=== PATIENT | female | born 1990 | race Hispanic/Latino ===

== ENCOUNTER 2021-05-04 10:15 | Emergency (ER) | payer SELFPAY ==
[2021-05-04 10:24] VITALS: BP 127/69; PULSE 78; RESP 16; TEMP 37.1; O2SAT 100
--- NOTE | 2021-05-04 10:48 | ED.EAR ---
HPI - Ear Problem General Chief complaint: Ear Stated complaint: Ear Pain History of Present Illness HPI Narrative: This is a 31-year-old comes in complaining ear pain states that has been going on for the past couple of days. Patient states that her face is been hurting. Patient states she is been taking Tylenol and ibuprofen with no relief. New onset sore throat no fever no for the past few days. nasal drainage Related Data Allergies Allergy/AdvReac Type Severity Reaction Status Date / Time No Known Allergies Allergy Unverified 01/09/14 10:41 Review of Systems Review of Systems: CONSTITUTIONAL: Denies fever, chills, or sweats. EYES: Denies visual changes, redness, or discharge. ENT: Denies rhinorrhea, congestion, reports sore throat, or reports otalgia. CARDIOVASCULAR:Denies chest pain, palpitations, or edema. RESPIRATORY: Denies cough or dyspnea. GASTROINTESTINAL: Denies abdominal pain, nausea, vomiting, or diarrhea. GENITOURINARY: Denies dysuria or hematuria. SKIN:[Denies rash or itching. MUSCULOSKELETAL:Denies back pain, joint pain, or myalgia. NEUROLOGIC: Denies headache, numbness, or weakness. PSYCHIATRIC:Denies anxiety or depression PMFSH Comments At time as signature, I have reviewed and agree with nursing past medical, social, surgical and family history. Please see nursing chart for further information. There is no relevant family history pertinent to the presenting complaint. Exam Narrative: GENERAL:Well-appearing, well-nourished, and in no acute distress. HEAD:Normocephalic, atraumatic. EYES: PERRLA and EOMI. ENT: Nares clear, no rhinorrhea Mucous membranes moist. Trigeminal pain and inability to to see in auditory canal NECK: Supple. CHEST: Clear to auscultation. No respiratory distress. HEART: Regular rate and rhythm. Normal peripheral pulses. ABDOMEN: Soft, nontender, normal active bowel sounds. EXTREMITIES: Normal range of motion. No edema. SKIN: Warm, dry, no rash. NEURO: No focal deficits. Alert and oriented x3. Course Vital Signs Vital signs: Vital Signs Temperature 98.7 F 05/04/21 10:24 Pulse Rate 78 05/04/21 10:24 Respiratory Rate 16 05/04/21 10:24 Blood Pressure 127/69 05/04/21 10:24 Pulse Oximetry 100 05/04/21 10:24 Temperature 98.7 F 05/04/21 10:24 Pulse Rate 78 05/04/21 10:24 Respiratory Rate 16 05/04/21 10:24 Blood Pressure 127/69 05/04/21 10:24 Pulse Oximetry 100 05/04/21 10:24 Medical Decision Making Vital Signs Vital Signs: Vital Signs Temperature 98.7 F 05/04/21 10:24 Pulse Rate 78 05/04/21 10:24 Respiratory Rate 16 05/04/21 10:24 Blood Pressure 127/69 05/04/21 10:24 Pulse Oximetry 100 05/04/21 10:24 Temperature 98.7 F 05/04/21 10:24 Pulse Rate 78 05/04/21 10:24 Respiratory Rate 16 05/04/21 10:24 Blood Pressure 127/69 05/04/21 10:24 Pulse Oximetry 100 05/04/21 10:24 Lab Data Labs: Strep Screen Presumptive Negative *(Reference Range: Negative)* Discharge Plan Discharge Clinical Impression: Acute sore throat Otitis externa Qualifiers: Otitis externa type: unspecified type Chronicity: acute Laterality: right Qualified Code(s): H60.501 - Unspecified acute noninfective otitis externa, right ear Patient Disposition: Home, Self-Care Condition: Stable Instructions: Antibiotic Form, Swimmer's Ear (ED), Allergic Rhinitis (ED) Additional Instructions: Ear instructions most people who have a cold do not need to see the doctor or nurse. But you should call your doctor or nurse if you have: ?A fever of more than 100.4? F (38? C) that comes with shaking chills, loss of appetite, or trouble breathing ?A fever and also have lung disease, such as emphysema or asthma ?A cough that lasts longer than 10 days ?Chest pain when you cough, trouble breathing, or coughing up blood Your strep test today was negative. A rejia
== END 2021-05-04 11:16 | disposition home or self-care (01) ==
PROVIDERS: Emergency Provider Nurse Practitioner Family
DX: J02.9 Acute pharyngitis, unspecified (principal); H60.501 Unspecified acute noninfective otitis externa, right ear
CPT/HCPCS: 87081; 87880; 99213; G0463

== ENCOUNTER 2022-03-08 17:33 | Outpatient (CLI) | payer OTHER, SELFPAY ==
[2022-03-08 17:56] VITALS: BP 126/69; PULSE 85
[2022-03-08 18:00] VITALS: BP 129/69; PULSE 86
[2022-03-08 18:15] VITALS: BP 119/66; PULSE 83
== END 2022-03-08 18:24 | disposition home or self-care (01) ==
LOC: ANHOBOP 17:39 → ANHOBPP 03-14 08:18
PROVIDERS: Visit Provider Obstetrics & Gynecology
DX: O42.913 Preterm premature rupture of membranes, unspecified as to length of time between rupture and onset of labor, third trimester (principal); Z3A.33 33 weeks gestation of pregnancy
CPT/HCPCS: 59025; 84112; 99199

== ENCOUNTER 2022-04-15 05:02 | Inpatient (IN) | payer OTHER, SELFPAY ==
[2022-04-15] VITALS (132 sets, daily range): BP systolic 104–153; BP diastolic 53–111; PULSE 64–141; RESP 18; TEMP 36.1–37.1; O2SAT 97–100; BMI 36.1
--- OUTSIDE RECORDS SUMMARY | 2022-04-15 05:08 | XMS_ITS | Encounter Summary ---
:1990 Author Reason for Visit None recorded. Assessment and Plan None recorded.Discussion Note: None recorded.Patient educational handouts: No information available. Plan of Care Reminders Provider Appointments None recorded. ? ? Lab None recorded. ? ? Referral None recorded. ? ? Procedures None recorded. ? ? Surgeries None recorded. ? ? Imaging None recorded. ? ? Medications Name Start Date ? ? ? Medications Administered None recorded. Vitals None recorded. Results Lab Results None recorded. Allergies Code Code System Name Reaction Severity Onset NKDA ? ? ? Problems Name Status Onset Date Source ? Active 10/13/2021 ? Prediabetes Active ? ? Procedures Date Name Performed by ? 03/08/2022 , Obstetric, Follow-up [place] [address] [place] [address] (Work [address]) 03/15/2022 , Obstetric, Limited [place] [address] [place] [address] (Work [address]) Vaccine List None recorded. Social History Tobacco Smoking Status Never Smoker What type of diet are you following? REGULAR Do you have difficulty walking or climbing stairs? N Are you able to walk? YESWOREST Has tobacco cessation counseling been provided? N Ar
--- OUTSIDE RECORDS SUMMARY | 2022-04-15 05:08 | XMS_ITS | Encounter Summary ---
:1990 Author Reason for Visit None recorded. Assessment and Plan 1. Routine care Discussion Note: None recorded.Patient educational handouts: No information available. Plan of Care Reminders Provider Appointments None recorded. ? ? Lab None recorded. ? ? Referral None recorded. ? ? Procedures None recorded. ? ? Surgeries None recorded. ? ? Imaging None recorded. ? ? Medications Name Start Date ? ? ? Medications Administered None recorded. Vitals Height Weight BMI Blood Pressure 5 ft 4 in 212 lbs 36.4 kg/m2 127/77 mm[Hg] Results Lab Results None recorded. Allergies Code Code System Name Reaction Severity Onset NKDA ? ? ? Problems Name Status Onset Date Source ? Active 10/13/2021 ? Prediabetes Active ? ? Procedures Date Name Performed by ? 03/08/2022 US, Obstetric, Follow-up [place] [address] [place] [address] (Work Place) 03/15/2022 , Obstetric, [facility] [address] [place] [address] (Work [address]) 03/29/2022 , Obstetric, [facility] [address] [place] [address]
--- OUTSIDE RECORDS SUMMARY | 2022-04-15 05:08 | XMS_ITS | Encounter Summary ---
:1990 Author Reason for Visit OB visit Assessment and Plan 1. Routine care Discussion [...] BMI Blood Pressure 5 ft 4 in 203 lbs 34.8 kg/m2 105/70 mm[Hg] Results Lab Results None recorded. Allergies Code Code System Name Reaction Severity Onset NKDA ? ? ? Problems Name Status Onset Date Source ? Active 10/13/2021 ? Prediabetes Active ? ? Procedures None recorded. Vaccine List None recorded. Social History Tobacco Smoking Status Never Smoker What type of diet are you following? REGULAR Do you have difficulty walking or climbing stairs? N Are you able to walk? YESWOREST Has tobacco cessation counseling been provided? N Are you able to care for yourself? Y Are you blind or do you have difficulty seeing? N Do you have smoke and carbon monoxide detectors in your home ? Y In the 14 days before symptom onset, have you had close cont act with N a person who is under investigation for COVID-19 while that person was ill?
--- OUTSIDE RECORDS SUMMARY | 2022-04-15 05:08 | XMS_ITS | Encounter Summary ---
:1990 Author Reason for Visit OB visit Assessment and Plan Assessment Note Patient is ___weeks . Discussed plan. 1. -induced hypertension Discussion Note: None recorded.Patient educational handouts: No [...] BMI Blood Pressure 5 ft 4 in 214 lbs 36.7 kg/m2 (1) 145/88 mm[H g] (2) 143/88 mm[Hg ] (3) 136/86 mm[Hg ] Results Lab Results None recorded. Allergies Code Code System Name Reaction Severity Onset NKDA ? ? ? Problems Name Status Onset Date Source ? Active 10/13/2021 ? Prediabetes Active ? ? Procedures Date Name Performed by ? 03/15/2022 , Obstetric, [facility] [address] [place] [address] (Work Place) 03/29/2022 , Obstetric, [facility] [address] [place] [address]
--- OUTSIDE RECORDS SUMMARY | 2022-04-15 05:08 | XMS_ITS | Encounter Summary ---
:1990 Author Reason for Visit None recorded. Assessment and Plan 1. -induced hypertension ? non-stress test Discussion Note: None recorded.Patient educational handouts: No information available. Plan of Care Reminders Provider Appointments None recorded. ? ? Lab None recorded. ? ? Referral None recorded. ? ? Procedures None recorded. ? ? Surgeries None recorded. ? ? Imaging Non-stress Test 04/13/2022 [place] Medications Name Start Date ? ? ? Medications Administered None recorded. Vitals None recorded. Results Lab Results None recorded. Allergies Code Code System Name Reaction Severity Onset NKDA ? ? ? Problems Name Status Onset Date Source ? Active 10/13/2021 ? Prediabetes Active ? ? Procedures Date Name Performed by ? 03/15/2022 , Obstetric, [facility] [address] [place] [address] (Work Place) 03/29/2022 , Obstetric, [facility] [address] [place] [address] (Work [address]) 04/13/2022 Non-stress Test [place] [address] [place] [address] (Work [address])
--- OUTSIDE RECORDS SUMMARY | 2022-04-15 05:08 | XMS_ITS | Encounter Summary ---
[...] BMI Blood Pressure 5 ft 4 in 208 lbs 35.7 kg/m2 116/72 mm[Hg] Results Lab Results None recorded. Allergies Code Code System Name Reaction Severity Onset NKDA ? ? ? Problems Name Status Onset Date Source ? Active 10/13/2021 ? Prediabetes Active ? ? Procedures Date Name Performed by ? 03/08/2022 US, Obstetric, Follow-up [place] [address] [place] [address] (Work Place) 03/15/2022 US, Obstetric, Limited [place] [address] [place] [address] (Work [address]) Vaccine List None recorded. Social History Tobacco Smoking Status Never Smoker What type of diet are you following? REGULAR Do you have difficulty walking or climbin
--- OUTSIDE RECORDS SUMMARY | 2022-04-15 05:08 | XMS_ITS | Encounter Summary ---
:1990 Author Reason for Visit None recorded. Assessment and Plan 1. Oligohydramnios ? US, obstetric, limited Discussion Note: None recorded.Patient educational handouts: No information available. Plan of Care Reminders Provider Appointments None recorded. ? ? Lab None recorded. ? ? Referral None recorded. ? ? Procedures None recorded. ? ? Surgeries None recorded. ? ? Imaging US, Obstetric, Limited 03/15/2022 Guevara esteves Medications Name Start Date ? ? ? Medications Administered None recorded. Vitals None recorded. Results Lab Results None recorded. Allergies Code Code System Name Reaction Severity Onset NKDA ? ? ? Problems Name Status Onset Date Source ? Active 10/13/2021 ? Prediabetes Active ? ? Procedures Date Name Performed by ? 03/08/2022 US, Obstetric, Follow-up [place] [address] [place] [address] (Work [address]) 03/15/2022 US, Obstetric, Limited [place] [address] [place] [address] (Work [address]) Vaccine List None recorded. Social History Tobacco Smoking Status Never Smoker What type of diet are you following? REGULAR Do you have difficulty walking or climbing stairs? N Are you able to
--- OUTSIDE RECORDS SUMMARY | 2022-04-15 05:08 | XMS_ITS | Encounter Summary ---
[...] BMI Blood Pressure 5 ft 4 in 206 lbs 35.4 kg/m2 121/77 mm[Hg] Results Lab Results None recorded. Allergies [...]
--- OUTSIDE RECORDS SUMMARY | 2022-04-15 05:08 | XMS_ITS | Encounter Summary ---
[...] BMI Blood Pressure 5 ft 4 in 201 lbs 34.5 kg/m2 122/76 mm[Hg] Results Lab Results None recorded. Allergies Code Code System Name Reaction Severity Onset NKDA ? ? ? Problems Name Status Onset Date Source ? Active 10/13/2021 ? Prediabetes Active ? ? Procedures Date Name Performed by ? 01/10/2022 , Obstetric, Follow-up [place] [address] [place] [address] (Work [address]) Vaccine List [...]
--- OUTSIDE RECORDS SUMMARY | 2022-04-15 05:08 | XMS_ITS ---
:1990 Author Care Team Providers Name Role Phone Amena Esteban Primary Care Provider Unavailable Allergies Code Code System Name Reaction Severity Status Onset NKDA ? Medications Name Status Start Date Stop Date ? ? COVID-19 test specimen collection Completed ? 09/20/2021 DIRECTED Active ? Not available Problems Name Status Onset Date Source ? Active 10/13/2021 ? Prediabetes Active ? ? Procedures Date Name Performed by ? 10/13/2021 US, Obstetric, Nuchal Translucency [facility] [place] [address] [place] [address] (Work [address]) 11/12/2021 US, Obstetric, Limited [place] [address] [place] [address] (Work [address]) 12/09/2021 US, Obstetric, 2Nd or 3Rd Trimester Lois [facility] [address] [place] [address] (Work [address]) 01/10/2022 , Obstetric, Follow-up [place] [address] [place] [address] (Work Place) 03/08/2022 US, Obstetric, Follow-up [place] [address] [place] [address] (Work [address])
--- OUTSIDE RECORDS SUMMARY | 2022-04-15 05:08 | XMS_ITS | Encounter Summary ---
:1990 Author Reason for Visit None recorded. Assessment and Plan 1. Oligohydramnios ? US, obstetric, follow-up Discussion Note: None recorded.Patient educational handouts: No information available. Plan of Care Reminders Provider Appointments None recorded. ? ? Lab None recorded. ? ? Referral None recorded. ? ? Procedures None recorded. ? ? Surgeries None recorded. ? ? Imaging US, Obstetric, Follow-up 03/08/2022 Teresa castellon Medications Name Start Date ? ? ? Medications Administered None recorded. Vitals None recorded. Results Lab Results None recorded. Allergies Code Code System Name Reaction Severity Onset NKDA ? ? ? Problems Name Status Onset Date Source ? Active 10/13/2021 ? Prediabetes Active ? ? Procedures Date Name Performed by ? 03/08/2022 US, Obstetric, Follow-up [place] [address] [place] [address] (Work [address]) Vaccine List [...]
--- OUTSIDE RECORDS SUMMARY | 2022-04-15 05:08 | XMS_ITS | Encounter Summary ---
[...] recorded. ? ? Imaging US, Obstetric, Limited 03/29/2022 Guevara esteves Medications Name Start Date ? ? ? Medications Administered None recorded. Vitals None recorded. Results Lab Results None recorded. Allergies Code Code System Name Reaction Severity Onset NKDA ? ? ? Problems Name Status Onset Date Source ? Active 10/13/2021 ? Prediabetes Active ? ? Procedures Date Name Performed by ? 03/08/2022 US, Obstetric, Follow-up [place] [address] [place] [address] (Work [address]) 03/15/2022 , Obstetric, [facility] [address] [place] [address] (Work [address]) 03/29/2022 , Obstetric, [facility] [address] [place] [address] (Work [address])
--- OUTSIDE RECORDS SUMMARY | 2022-04-15 05:08 | XMS_ITS | Encounter Summary ---
:1990 Author Reason for Visit OB visit OB [id number] EDC 04/24/2022 LMP 07/18/2021 Assessment and Plan Assessment Note Patient is _37__weeks . Discuss ed plan. 1. Routine care Discussion Note: None recorded.Patient [...] BMI Blood Pressure 5 ft 4 in 210 lbs 36 kg/m2 132/81 mm[Hg] Results Lab Results None recorded. Allergies Code Code System Name Reaction Severity Onset NKDA ? ? ? Problems Name Status Onset Date Source ? Active 10/13/2021 ? Prediabetes Active ? ? Procedures Date Name Performed by ? 03/08/2022 US, Obstetric, Follow-up [place] [address] [place] [address] (Work [address]) 03/15/2022 US, Obstetric, Limited [place] [address] [place] [address] ([address]) 03/29
--- NOTE | 2022-04-15 05:25 | LDADM ---
This patient, Shaylee Paiz, was admitted to Labor/Delivery/Recovery 106 on 04/15/22 at 05:02. Plans for labor, pain management and were discussed with patient. Patient/family oriented to hospital policies and general routines including ID bracelet, bed and alarms, visiting hours, pain management, procedures, bathroom and other care routines, personal items, smoking policy, room service/diet and guest tray routines, security routines, and visiting hours. Patient/Family are encouraged to report perceived risks to care and to ask questions if they do not understand what they are told or what they should do. See OBIX for further documentation.
[2022-04-15] MEDS: LACTATED RINGERS 1,000 ML 125 ML IV CONT ×3 (05:30→09:36)
[2022-04-15 05:43] LABS: Basophils Percent Auto 0.3 % (0.2-1.2); Eosinophils Absolute Auto 0.3 K/mm3 (0-0.3); Eosinophils Percent Auto 3.1 % (0-4.4); Hemoglobin 11.1 g/dL (12.0-15.0); Immature Granulocyte Absolute 0.12 K/mm3 (0.00-0.031); Immature Granulocyte Percent A 1.4 % (0-0.5); Lymphocytes Absolute Auto 1.73 K/mm3 (0.9-3.2); Lymphocytes Percent Auto 19.7 % (18.3-44.2); Mean Corpuscular HGB Conc 32.6 g/dl (32-36); Mean Corpuscular Hemoglobin 26.1 pg (26-34); Mean Platelet Volume 12.8 fl (7.4-10.4); Monocytes Absolute Auto 0.8 K/mm3 (0.1-0.6); Monocytes Percent Auto 9.3 % (2.6-8.5); Neutrophils Absolute Auto 5.8 K/mm3 (1.3-6.7); Neutrophils Percent Auto 66.2 % (45.5-73.1); Platelet Count Result 194 k/mm3 (150-375); Red Blood Count 4.25 M/mm3 (4.2-5.4); Red Cell Distribution Width 14.6 % (11.5-14.5); White Blood Count 8.8 K/mm3 (4.5-10.0)
[2022-04-15 05:53] LABS: Alanine Aminotransferase 29 U/L (6-35); Alkaline Phosphatase 119 U/L (38-126); Anion Gap 8 mmol/L (8-16); Aspartate Amino Transferase 45 U/L (14-36); Bilirubin,Total 0.4 mg/dL (0.2-1.3); Blood Urea Nitrogen 10 mg/dL (7-17); Calcium 8.9 mg/dL (8.4-10.2); Carbon Dioxide 22 mmol/L (22-30); Chloride 105 mmol/L (98-107); Estimated CRCL calculation 182 ml/min; Estimated Glomerular Filt Rate > 60; Glucose 94 mg/dL (65-110); Potassium 3.9 mmol/L (3.4-5.0); Sodium 135 mmol/L (137-145)
[2022-04-15] MEDS: OXYTOCIN 30 UNITS/NS 500 ML 30 UNITS/500 ML BAG IV CONT (05:53)
[2022-04-15 05:55] LABS: Uric Acid 6.3 mg/dL (2.5-7.5)
--- NOTE | 2022-04-15 06:24 | WPDANESEPP ---
Anes - Eval Pre Procedure Procedure: Labor epidural Date/Time: 04/15/22 06:24 Surgeon: Carlito Preop Diagnosis: Abd pain with contractions Pre Op Diagnosis: IOL Patient Data Age: 32 Gender: F Height: 1.63 m Weight: 95.5 kg Last Vital Signs Temp 97 F L 04/15/22 05:55 Pulse 77 04/15/22 06:16 BP 132/74 04/15/22 06:16 O2 Del Method Room Air 04/15/22 05:23 Allergies Allergy/AdvReac Type Severity Reaction Status Date / Time No Known Allergies Allergy Unverified 01/09/14 10:41 Home Medications Medication Instructions Recorded Confirmed Type prenat.vits,zita,[id number] 1 tablet PO HS 03/31/22 03/31/22 History Laboratory Tests 04/15/22 04/15/22 04/15/22 05:18 05:18 05:18 WBC 8.8 K/mm3 K/mm3 (4.5-10.0) RBC 4.25 M/mm3 M/mm3 (4.2-5.4) Hgb 11.1 g/dL L g/dL (12.0-15.0) Hct 34.0 % L % (37.0-47.0) MCV 80.0 fl fl (80-100) MCH 26.1 pg pg (26-34) MCHC 32.6 g/dl g/dl (32-36) RDW 14.6 % H % (11.5-14.5) Plt Count 194 k/mm3 k/mm3 (150-375) MPV 12.8 fl H fl (7.4-10.4) Immature Gran % (Auto) 1.4 % H % (0-0.5) Neut % (Auto) 66.2 % % (45.5-73.1) Lymph % (Auto) 19.7 % % (18.3-44.2) [place] % (Auto) 9.3 % H % (2.6-8.5) Eos % (Auto) 3.1 % % (0-4.4) Baso % (Auto) 0.3 % % (0.2-1.2) Lymph # (Auto) 1.73 K/mm3 K/mm3 (0.9-3.2) [place] # (Auto) 0.8 K/mm3 H K/mm3 (0.1-0.6) Eos # (Auto) 0.3 K/mm3 K/mm3 (0-0.3) Baso # (Auto) 0.0 K/mm3 K/mm3 (0.0-0.1) Abs Immat Gran (auto) 0.12 K/mm3 H K/mm3 (0.00-0.031) Absolute Neuts (auto) 5.8 K/mm3 K/mm3 (1.3-6.7) Absolute Nucleated RBC 0.0 K/mm3 K/mm3 (0.0-0.012) Nucleated RBC % 0.0 % % (0.0-0.2) Sodium Potassium Chloride Carbon Dioxide Anion Gap BUN Creatinine Estim Creat Clear Calc Estimated GFR Glucose Uric Acid 6.3 mg/dL mg/dL (2.5-7.5) Calcium Total Bilirubin AST ALT Alkaline Phosphatase Total Protein Albumin RPR Pending Blood Type Antibody Screen 04/15/22 04/15/22 05:18 05:18 WBC RBC Hgb Hct MCV MCH MCHC RDW Plt Count MPV Immature Gran % (Auto) Neut % (Auto) Lymph % (Auto) [place] % (Auto) Eos % (Auto) Baso % (Auto) Lymph # (Auto) [place] # (Auto) Eos # (Auto) Baso # (Auto) Abs Immat Gran (auto) Absolute Neuts (auto) Absolute Nucleated RBC Nucleated RBC % Sodium 135 mmol/L L mmol/L (137-145) Potassium 3.9 mmol/L mmol/L (3.4-5.0) Chloride 105 mmol/L mmol/L (98-107) Carbon Dioxide 22 mmol/L mmol/L (22-30) Anion Gap 8 mmol/L mmol/L (8-16) BUN 10 mg/dL mg/dL (7-17) Creatinine 0.40 mg/dL L mg/dL (0.7-1.0) Estim Creat Clear Calc 182 ml/min ml/min Estimated GFR > 60 (59 - ) Glucose 94 mg/dL mg/dL (65-110) Uric Acid Calcium 8.9 mg/dL mg/dL (8.4-10.2) Total Bilirubin 0.4 mg/dL mg/dL (0.2-1.3) AST 45 U/L H U/L (14-36) ALT 29 U/L U/L (6-35) Alkaline Phosphatase 119 U/L U/L (38-126) Total Protein 7.0 g/dL g/dL (6.3-8.2) Albumin 4.0 g/dL g/dL (3.5-5.1) RPR Blood Type O Positive Antibody Screen Pending HCG: positive Patient hx anesthesia problems: none Family hx anesthesia problems: none Results Review: All pre-operative results and doc
--- NOTE | 2022-04-15 07:17 | PM.IMHP ---
H&P: HPI History of Present Illness Date/Time: 04/15/22 07:17 Chief Complaint: IOL, gHTN Narrative: Shaylee is a at 38.5 for IOL, recent development of PIH. Denies sx. has also been complicated by grand multiparity and low normal fluid of 6-8 recently. GBS neg. PMFSH Past Medical History Medical History (Updated 04/15/22 @ 07:21 by Amena Esteban MD) Obesity and not yet delivered Family History Family History Mother Breast cancer Social History Social History Smoking status: Never smoker Second hand tobacco smoke exposure: No Substance use: never Spiritual care concerns: No Meds Home Medications and Allergies Home Medications Medication Instructions Recorded Confirmed Type prenat.vits,zita,kym-hjqp-grnid 1 tablet PO HS 03/31/22 03/31/22 History Allergies Allergy/AdvReac Type Severity Reaction Status Date / Time No Known Allergies Allergy Unverified 01/09/14 10:41 Vital Signs Vital Signs - 24 hr 04/15/22 05:20 04/15/22 05:55 04/15/22 05:57 Temperature 97 F L Pulse Rate 77 77 Blood Pressure 108/90 131/77 Oxygen Delivery 04/15/22 06:01 04/15/22 06:16 04/15/22 06:31 Temperature Pulse Rate 70 77 76 Blood Pressure 125/74 132/74 123/75 Oxygen Delivery 04/15/22 06:46 04/15/22 07:01 04/15/22 07:16 Temperature Pulse Rate 77 72 76 Blood Pressure 129/75 132/75 134/70 Oxygen Delivery 04/15/22 05:23 Temperature Pulse Rate Blood Pressure Oxygen Delivery Room Air H&P: Results Labs Labs: Short CBC 04/15/22 Range/Units 05:18 WBC 8.8 (4.5-10.0) K/mm3 Hgb 11.1 L (12.0-15.0) g/dL Hct 34.0 L (37.0-47.0) % Plt Count 194 (150-375) k/mm3 BMP 04/15/22 05:18 Sodium 135 L Potassium 3.9 Chloride 105 Carbon Dioxide 22 BUN 10 Creatinine 0.40 L Glucose 94 Calcium 8.9 Liver Function 04/15/22 Range/Units 05:18 Total Bilirubin 0.4 (0.2-1.3) mg/dL AST 45 H (14-36) U/L ALT 29 (6-35) U/L Alkaline Phosphatase 119 (38-126) U/L Albumin 4.0 (3.5-5.1) g/dL Assessment and Plan Assessment and plan (1) PIH ( induced hypertension): Code(s): O13.9 - Gestational [-induced] hypertension without significant proteinuria, unspecified trimester Status: Acute (2) Grand multiparity: Code(s): Z64.1 - Problems related to multiparity Status: Acute Additional Plan GBS neg BPs stable AROM soon pitocin FHT category 1
--- NOTE | 2022-04-15 14:54 | PM.OBPRVD ---
OB - Delivery Note Procedure Delivery date: 04/15/22 Procedure: Events: Gestational Hypertension Induction method: AROM and Per Pitocin Protocol Delivery monitor: External FHT and Internal Uterine Route of delivery: Laceration Description: None Specimen: No Quantitative Blood Loss (ml): 210 Anesthesia type: Epidural Disposition: Floor Narrative: With adequate expulsive efforts by the mother, the baby's head was delivered OA. The baby's anterior shoulder was delivered under the pubic symphysis without difficulty. The posterior shoulder and the rest of the baby delivered without difficulty. The infant was placed on the mothers chest and suctioned and stimulated. The cord was clamped and cut after 30 seconds. Mother and baby both stable. [place] Baby Date of : 04/15/22 Time of : 14:39 Weeks of gestation at delivery: 38 Weight (pounds): 7 Weight (ounces): 15 presentation: vertex Placenta delivery description: Spontaneous Cord Vessel Description: 3 Vessels and Delayed Cord Clamping score one minute: 8 score five minutes: 9
[2022-04-15] MEDS: OXYTOCIN 30 UNITS/NS 500 ML 30 UNITS/500 ML BAG 125 UNITS IV CONT (15:08)
[2022-04-15] MEDS: IBUPROFEN 600 MG TABLET PO ×2 (16:04→22:56)
--- NOTE | 2022-04-15 17:54 | OBPPTRN ---
Patient transferred to post room #282 via wheelchair. Support person present. Oriented to unit, room, information board, rooming in, admission packet and security measures. Patient verbalizes understanding.
[2022-04-15] MEDS: BENZOCAINE 20% AER SPR (*SP) 56 GM CAN 1 SPRAY TOPICAL (19:11)
[2022-04-15] MEDS: WITCH HAZEL 40 PADS 1 PAD TOPICAL (19:11)
[2022-04-15] MEDS: ACETAMINOPHEN 325 MG TABLET 650 MG PO (19:11)
[2022-04-15] MEDS: LANOLIN (LANSINOH) 7.5 GM CREAM 1 APPLIC TOPICAL (19:12)
[2022-04-16] MEDS: ACETAMINOPHEN 325 MG TABLET 650 MG PO (03:55)
[2022-04-16] MEDS: IBUPROFEN 600 MG TABLET PO ×2 (03:56→10:30)
[2022-04-16 04:38] VITALS: BP 109/65; PULSE 100; RESP 16; TEMP 36.9
[2022-04-16 05:05] LABS: Hematocrit 32.1 % (37.0-47.0)
--- NOTE | 2022-04-16 05:53 | PM.OBPNVD ---
OB - PN: Subj Subjective Date/time seen: 04/16/22 05:53 Patient comments: no complaints baby status: nursing well feeding status: exclusively breast feeding Narrative: Doing well. Moderate cramping. NOrmal lochia. E/A/V. Would like DC later today. OB - PN: Obj Data Labs CBC & Chem 7: 04/16/22 03:53 04/15/22 05:18 Labs: Laboratory Results - last 24 hr 04/15/22 04/15/22 04/15/22 05:18 05:18 05:18 Hgb Hct Sodium 135 L Potassium 3.9 Chloride 105 Carbon Dioxide 22 Anion Gap 8 BUN 10 Creatinine 0.40 L Estim Creat Clear Calc 182 Estimated GFR > 60 Glucose 94 Uric Acid 6.3 Calcium 8.9 Total Bilirubin 0.4 AST 45 H ALT 29 Alkaline Phosphatase 119 Total Protein 7.0 Albumin 4.0 Blood Type O Positive Antibody Screen Negative 04/16/22 03:53 Hgb 10.0 L Hct 32.1 L Sodium Potassium Chloride Carbon Dioxide Anion Gap BUN Creatinine Estim Creat Clear Calc Estimated GFR Glucose Uric Acid Calcium Total Bilirubin AST ALT Alkaline Phosphatase Total Protein Albumin Blood Type Antibody Screen OB - PN A/P Plan day: 1 Plan: routine care and discharge home Comments: DC instructions given. Time Spent With Patient Time: Total time spent is greater than 50% in coordination of care (as documented) at patient's floor/unit and/or counseling patient: Time with patient: less than 15 minutes Exam Narrative: NAD abdomen soft, nontender, fundus firm below the umbilicus Extremities nontender, 1+ edema
--- NOTE | 2022-04-16 05:56 | P.DS_ITS ---
DS: Admitting Diagnosis Discharge Date 04/16/22 Admitting Diagnosis term IUP, PIH DS: Discharge Diagnosis Discharge Diagnosis (1) PIH ( induced hypertension): Code(s): O13.9 - Gestational [-induced] hypertension without significant proteinuria, unspecified trimester Status: Acute (2) , delivered: Code(s): O80 - Encounter for full-term uncomplicated delivery Status: Acute DS: Summary Hospital Course Hospital Course: Shaylee was admitted for IOL for mild PIH. She proceeded to have an uncomplicated vaginal delivery and course. All BPs were normotensive following delivery. She was DCed home on PPD #1 with precautions. Status at Discharge Functional status at discharge: independent ambulation Time Spent with Patient Time attestation: Total time spent providing and/or coordinating discharge services: Exam Narrative: NAD abdomen soft, appropriately tender Ext non tender, 1+ edema DS: Data Data Completed and Pending Labs on day of discharge: Labs from last 24 hours 04/16/22 04/15/22 03:53 05:18 Hgb 10.0 L Hct 32.1 L Blood Type O Positive Antibody Screen Negative Discharge Plan Discharge Attending physician on discharge: Amena Esteban Discharging Clinician: Amena Esteban Anticipated Discharge Date/Time: 04/16/22 14:00 Patient Disposition: Home, Self-Care Activity: pelvic rest Diet: regular Patient Instructions: Antibiotic Form Stand Alone Forms: General Discharge Information Follow-up/Referrals: Amena Esteban MD [Physician] - 4 Weeks Discharge Medications: Continued #2 Tablet 1 tablet PO HS Date of admission: 04/15/22 05:02 Primary Care Provider: PHYSICIAN,RESIDENTIAL [employer] UNDERWRITER Admitting Provider: Amena Esteban Attending physician on admission: Amena Esteban Condition: Stable
[2022-04-16 08:30] VITALS: BP 125/72; PULSE 94; RESP 18; TEMP 37.2; O2SAT 98
[2022-04-16] MEDS: MULTIVIT/MIN/PREN/FOL AC/IRON TABLET 1 TAB PO (08:33)
[2022-04-16] MEDS: DOCUSATE SODIUM 100 MG CAPSULE PO (08:33)
[2022-04-16 11:50] VITALS: BP 133/79; PULSE 100; PULSE 97; RESP 18; TEMP 37.3; O2SAT 100; O2SAT 97
--- NOTE | 2022-04-16 12:22 | WPDANLDPN2 ---
Anes-Prog Note L&D Date/Time: 04/16/22 12:22 Comfortable throughout: labor and delivery Neuraxial method: epidural Epidural/Spinal procedure site: tender Neuro status: Neuro function grossly intact. Respiratory status: normal Airway patency: baseline Mental status: baseline Post-Op hydration status: normal Vital Signs: Last Vital Signs Temp 99.1 F 04/16/22 11:50 Pulse 100 04/16/22 11:50 Resp 18 04/16/22 11:50 BP 133/79 04/16/22 11:50 Pulse Ox 97 04/16/22 11:50 O2 Del Method Room Air 04/16/22 11:50 Pain score (VAS): 0 I/O: Intake & Output 04/15/22 04/16/22 04/16/22 23:59 07:59 15:59 Intake Total 1140 2000 Output Total 2000 250 Balance 1140 0 -250 Patient feedback: Patient satisfied with anesthetic care.
--- NOTE | 2022-04-16 17:00 | PC.NURSE ---
Patient was given the opportunity to view the discharge video Mother & Baby Care, The First Two Weeks and to ask questions. Patient declined viewing the video and has been given the mother/baby guide for home reference.
[2022-04-18 07:33] LABS: Rapid Plasma Reagin Non-Reactive (NonReactive)
[2022-04-18 08:06] VITALS: BP 122/72; PULSE 76; RESP 20; TEMP 36.4; O2SAT 99
== END 2022-04-16 17:13 | disposition home or self-care (01) | DRG 560 ==
LOC: ANHLDR 05:05 → ANHOB2 18:35
PROVIDERS: Admitting Provider Obstetrics & Gynecology; Visit Provider Obstetrics & Gynecology
DX: O13.4 Gestational [pregnancy-induced] hypertension without significant proteinuria, complicating childbirth (principal); Z37.0 Single live birth; O99.214 Obesity complicating childbirth; O62.3 Precipitate labor; O76 Abnormality in fetal heart rate and rhythm complicating labor and delivery; Z64.1 Problems related to multiparity; Z3A.38 38 weeks gestation of pregnancy
CPT/HCPCS: 36415; 80053; 84550; 85014; 85018; 85025; 86592; 86850; 86900; 86901; A9270; J2590; J2795; J7120